=== PATIENT | female | born 1970 | race Caucasian/White ===

== ENCOUNTER 2025-02-26 06:59 | Day surgery (SDC) | payer OTHER ==
[~2025-02-26] VITALS: Ht 167.6 cm; Wt 93.8 kg
[~2025-02-26 06:59] MED LIST: CALC600C3 PO; CETI10CH PO; IMIT100T PO
[2025-02-26 08:35] VITALS: TEMP 97.8
[2025-02-26 08:48] VITALS: BP 137/83; O2SAT 98
== END 2025-02-26 08:54 | disposition home or self-care (01) ==
LOC: M OPP 06:59
PROVIDERS: ATTEND Internal Medicine Gastroenterology
DX: Z12.11 Encounter for screening for malignant neoplasm of colon (principal); K63.5 Polyp of colon; K64.0 First degree hemorrhoids; K57.30 Diverticulosis of large intestine without perforation or abscess without bleeding; Z88.2 Allergy status to sulfonamides; Z91.048 Other nonmedicinal substance allergy status; Z79.899 Other long term (current) drug therapy; F17.290 Nicotine dependence, other tobacco product, uncomplicated